=== PATIENT | female | born 1980 | race African-American/Black ===

== ENCOUNTER 2020-03-19 16:15 | Emergency (ER) | payer BC ==
[~2020-03-19] VITALS: Ht 162.6 cm; Wt 79.4 kg
[2020-03-19 16:16] VITALS: BP 116/74
[2020-03-19] MEDS ORDERED: ZYRTEC10 M5 PO (16:19)
[2020-03-19] MEDS ORDERED: PROTONIX40 M3 PO (16:19)
== END 2020-03-19 18:54 | disposition home or self-care (01) ==
LOC: ER 16:15
DX: B34.9 Viral infection, unspecified (principal); Z20.828 Contact with and (suspected) exposure to other viral communicable diseases; Z88.0 Allergy status to penicillin; Z88.2 Allergy status to sulfonamides; Z98.890 Other specified postprocedural states; Z79.899 Other long term (current) drug therapy